=== PATIENT | male | born 1955 | race Two or more races ===

== ENCOUNTER 2021-03-26 21:37 | Emergency (ER) | payer OTHER, MEDICARE ==
--- NOTE | 2021-03-26 21:49 | EDM.PDOC ---
ED HPI GENERAL MEDICAL PROBLEM - General Chief Complaint: Drug or Alcohol Abuse Stated Complaint: AMBULANCE Time Seen by Provider: 03/26/21 21:37 Source of Information: Reports: Patient History Limitations: Reports: Altered Mental Status, Intoxication - History of Present Illness INITIAL COMMENTS - FREE TEXT/NARRATIVE: This 66 yo male patient was brought to the ED by [facility] due to a head injury. The patient reports he was fishing in the boat all day, [place], had too much to drink and fell. The patient denies any loss of consciousness before, during or after the fall. Onset: Today Duration: Minutes: Location: Reports: Head Quality: Reports: Ache Severity: Moderate Improves with: Reports: None Worsens with: Reports: None Context: Reports: Activity Associated Symptoms: Reports: No Other Symptoms Head Pain Score (Numeric/FACES): 5 - Related Data Allergies Allergy/AdvReac Type Severity Reaction Status Date / Time No Known Allergies Allergy Verified 03/26/21 21:31 Home Meds: Home Meds . [No Known Home Meds] 03/26/21 [History] Social & Family History - Tobacco Use Tobacco Use Status *Q: Unknown Ever Used Tobacco ED ROS GENERAL - Review of Systems Review Of Systems: Comprehensive ROS is negative, except as noted in HPI. ED EXAM, HEAD INJURY - Physical Exam Exam: See Below Exam Limited By: Intoxication General Appearance: Alert, WD/WN, No Apparent Distress Head: Scalp Abrasions, Scalp Hematoma, Scalp Tenderness Nexus Criteria: Evidence of Intoxication. No: Posterior, Midline Cervical Tenderness, Focal Neurological Deficit, Painful Distraction Injuries Eyes: Bilateral Eye: EOMI, Normal Inspection, PERRL Ears: Normal External Exam, Normal Canal, Hearing Grossly Normal, Normal TMs Nose: Normal Inspection, Normal Mucousa, No Blood Throat/Mouth: Normal Inspection, Normal Lips, Normal Teeth, Normal Gums, Normal Oropharynx, Normal Voice, No Airway Compromise Neck: Full Range of Motion, Normal Alignment Respiratory: No Respiratory Distress, Lungs Clear, Normal Breath Sounds, No Accessory Muscle Use, Chest Non-Tender Cardiovascular: Normal Peripheral Pulses, Regular Rate, Rhythm, No Edema, No Gallop, No JVD, No Murmur, No Rub GI/Abdominal Exam: Normal Bowel Sounds, Soft, Non-Tender, No Organomegaly, No Distention, No Abnormal Bruit, No Mass (Male) Exam: Deferred Rectal (Males) Exam: Deferred Back Exam: Full Range of Motion, Normal Inspection, NT Extremities: Normal Inspection, Normal Range of Motion, Non-Tender, No Pedal Edema, Normal Capillary Refill Neurologic: chief green officer II-XII nml As Tested, No Motor/Sensory Deficits, Alert, Normal Mood/Affect, Oriented x 3 Skin: Normal Color, Warm/Dry - Manisha Coma Score Best Eye Response (Manisha): (4) Open Spontaneously Best Verbal Response ([place]): (5) Oriented Best Motor Response ([place]): (6) Obeys Commands Manisha Total: 15 Course - Vital Signs Last Recorded V/S: Last Vital Signs Temp 97.2 F 03/26/21 21:26 Pulse 68 03/26/21 21:26 Resp 20 03/26/21 21:26 BP 188/104 H 03/26/21 21:26 Pulse Ox 100 03/26/21 21:26 - Orders/Labs/Meds Labs: Laboratory Tests 03/26/21 03/26/21 03/26/21 Range/Units 21:30 21:30 21:55 WBC 8.0 (5.0-10.0) 10^3/uL RBC 4.57 L (4.6-6.2) 10^6/uL Hgb 15.4 (14.0-18.0) g/dL Hct 45.6 (40.0-54.0) % MCV 99.8 (80-100) fL MCH 33.7 (27.0-34.0) pg MCHC 33.8 (33.0-35.0) g/dL Plt Count 205 (150-450) 10^3/uL Neut % (Auto) 57.7 (42.2-75.2) % Lymph % (Auto) 29.3 (20.5-50.1) % Perry % (Auto) 11.3 H (2-8) % Eos % (Auto) 1.6 (1.0-3.0) % Baso % (Auto) 0.1 (0.0-1.0) % PT 9.8 (9.0-12.0) SEC INR 1.0 (0.9-1.2) Sodium 141 (136-145) mmol/L Potassium 3.8 (3.5-5.1) mmol/L Chloride 103 (98-107) mmol/L Carbon Dioxide 30 (21-32) mmol/L Anion Gap 11.8 (7-13) mEq/L BUN 11 (7-18) mg/dL Creatinine 0.85 (0.70-1.30) mg/dL Est Cr Clr Drug Dosing 82.71 mL/min Estimated GFR (MDRD) > 60 BUN/Creatinine Ratio 12.9 (No establ ref range) Glucose 110 H (70-99) mg/dL Calcium 8.4 L (8.5-10.1) mg/dL Total Bilirubin 0.3 (0.2-1.0) mg/dL AST 29 (15-37) U/L ALT 29 (16-63) U/L Alkaline Phosphatase 111 (46-116) U/L Total Protein 7.4 (6.4-8.2) g/dL Albumin 3.9 (3.4-5.0) g/dL Globulin 3.5 Albumin/Globulin Ratio 1.1 - Re-Assessments/Exams Free Text/Narrative Re-Assessment/Exam: 03/26/21 22:36 The patient was advised of the exam and CT results. The patient refused to allow nursing staff to clean is head. Departure - Departure Time of Disposition: 22:39 Disposition: Home, Self-Care 01 Condition: Fair Clinical Impression: Scalp contusion Qualifiers: Encounter type: initial encounter Qualified Code(s): S00.03XA - Contusion of scalp, initial encounter Scalp abrasion Qualifiers: Encounter type: initial encounter Qualified Code(s): S00.01XA - Abrasion of scalp, initial encounter - Discharge Information *PRESCRIPTION DRUG MONITORING PROGRAM REVIEWED*: Not Applicable *COPY OF PRESCRIPTION DRUG MONITORING REPORT IN PATIENT ROBYN: Not Applicable Instructions: Facial or Scalp Contusion, Aatf-at-Ylct, Abrasion, Lxoa-tc-Veso, Alcohol Intoxication, [id number] Forms: ED Department Discharge Care Plan Goals: The patient was advised of the examination, lab and CT results during the visit. The patient was encouraged to avoid drinking alcohol. The patient was encouraged to rest and relax over the next 48 hours. If the patient has any additional symptoms or concerns, the patient should either return to the emergency department or visit his primary care facility. Sepsis Event Note (ED) - Evaluation Sepsis Screening Result: No Definite Risk - Focused Exam Vital Signs: Vital Signs Temp Pulse Resp BP Pulse Ox 03/26/21 21:26 97.2 F 68 20 188/104 H 100
[2021-03-26 22:17] LABS: ANION GAP 11.8 mEq/L (7-13); CHLORIDE,CL 103 mmol/L (98-107); SODIUM,NA 141 mmol/L (136-145)
--- NOTE | 2021-03-26 22:26 | CT ---
PROCEDURE INFORMATION: Exam: CT Cervical Spine Without Contrast Exam date and time: 03/26/2021 10:04 PM Age: 66 years old Clinical indication: Other: Fall--etoh; Additional info: Fell and hit head TECHNIQUE: Imaging protocol: Computed tomography images of the cervical spine without contrast. Radiation optimization: All CT scans at this facility use at least one of these dose optimization techniques: automated exposure control; mA and/or kV adjustment per patient size (includes targeted exams where dose is matched to clinical indication); or iterative reconstruction. COMPARISON: No relevant prior studies available. FINDINGS: Bones/joints: Normal anatomic alignment. Vertebral body heights are well preserved. Multilevel anterior osteophytes are appreciated. There is no evidence of acutely displaced fractures. There is no evidence of joint dislocation. No aggressive osseous lesions. Discs/Spinal canal/Neural foramina: There is multilevel decrease in intervertebral disc space. The spinal canal is patent. No significant bony neural foraminal stenosis is appreciated. There is diffuse uncovertebral joint hypertrophy. Mild degenerative changes at the atlantoaxial joint without acute findings. Lungs: Lung apices are normal. Vasculature: There is mild atherosclerotic calcification of the carotid arteries. Soft tissues: Unremarkable. IMPRESSION: Negative for acute skeletal pathology.
--- NOTE | 2021-03-26 22:29 | CT ---
PROCEDURE INFORMATION: Exam: CT Head Without Contrast Exam date and time: 03/26/2021 10:04 PM Age: 66 years old Clinical indication: Other: Fall/etoh; Additional info: Fell and hit head TECHNIQUE: Imaging protocol: Computed tomography of the head without contrast. Radiation optimization: All CT scans at this facility use at least one of these dose optimization techniques: automated exposure control; mA and/or kV adjustment per patient size (includes targeted exams where dose is matched to clinical indication); or iterative reconstruction. COMPARISON: No relevant prior studies available. FINDINGS: Brain: Age related brain involution is present. No acute intracranial hemorrhage, mass effect, midline shift, or brain herniation. Diffuse subcortical and periventricular white matter hypodensities are most in favor with chronic small vessel disease. Cerebral ventricles: There is ex vacuo ventriculomegaly. Paranasal sinuses: Visualized sinuses are unremarkable. No fluid levels. Mastoid air cells: Visualized mastoid air cells are well aerated. Vasculature: Intracranial atherosclerosis is present. Bones/joints: Unremarkable. No acute fracture. Soft tissues: Right parietal scalp posttraumatic soft tissue swelling. Right parietal scalp 2.4 cm x 2 cm subcutaneous hematoma. No other acute soft tissue findings are otherwise appreciated. IMPRESSION: 1. Right parietal scalp posttraumatic soft tissue swelling with an associated 2.4 cm x 2 cm subcutaneous hematoma. 2. Negative for acute intracranial pathology.
== END 2021-03-27 00:30 | disposition home or self-care (01) ==
LOC: DL.ED 21:37
DX: S00.03XA Contusion of scalp, initial encounter (principal); W18.39XA Other fall on same level, initial encounter; Y92.59 Other trade areas as the place of occurrence of the external cause
CPT/HCPCS: 36415; 70450; 72125; 80053; 85025; 85610; 99283; 99284-25